=== PATIENT | female | born 1950 | race Two or more races ===

== ENCOUNTER 2024-07-14 23:17 | Emergency (ER) | payer MEDICARE, MEDICAID, SELFPAY ==
[2024-07-14 23:21] VITALS: BMI 31.3
[2024-07-14 23:34] VITALS: BP 154/69; PULSE 67; RESP 18; TEMP 36.3; O2SAT 98
--- NOTE | 2024-07-14 23:35 | XR_ITS ---
Examination: Knee, right , 3 views Technique: Knee AP, lateral, oblique 3 views Date and time of exam: July 15, 2024 0001 hours INDICATION: Patient fell today with injury to the knee, knee pain. FINDINGS: No fracture or dislocation Moderate knee effusion Moderate osteoarthritis medial joint space IMPRESSION: No acute fracture
--- NOTE | 2024-07-14 23:35 | XR_ITS ---
Examination: Right elbow 2 views TECHNIQUE: AP lateral right elbow 2 views Date and time: July 14, 2024 1152 hours INDICATIONS: Patient fell today with injury to elbow, elbow pain FINDINGS: No fracture or dislocation IMPRESSION: No fracture
--- NOTE | 2024-07-15 03:29 | PD.EDLOWEX ---
Lower Extremity Injury RME/HPI General Chief Complaint: Fall Stated Complaint: fall Time Seen by Provider: 07/14/24 23:34 Source: patient and family Arrival date/time: 07/14/24 23:17 This is a case of 74-year-old female who came in in the emergency room with her sister stated that the patient tripped and fell and landed on the right side patient is currently complaining of the right elbow and right knee pain with some abrasion patient is not taking any blood thinner patient denies any head neck chest or abdominal injury no loss of consciousness Limitations: no limitations and language barrier Related Data Home Medications ?Medication ?Instructions ?Recorded ?Confirmed loratadine 10 mg tablet (Claritin) 10 mg PO QDAY #0 tabs 08/15/13 10/06/17 albuterol sulfate 90 mcg/actuation 2 puff inhalation Q4H PRN 10/06/17 06/02/23 aerosol inhaler (Ventolin HFA) Shortness Of Breath Or Wheezing amlodipine 10 mg tablet 10 mg PO QDAY 10/06/17 06/02/23 atorvastatin 20 mg tablet 20 mg PO QDAY 10/06/17 10/06/17 famotidine 20 mg tablet 20 mg PO QDAY 10/06/17 10/06/17 glipizide 5 mg-metformin 500 mg 1 tab PO BID 10/06/17 10/06/17 tablet hydrochlorothiazide 25 mg tablet 25 mg PO QDAY 10/06/17 06/02/23 naproxen 500 mg tablet 500 mg PO BID PRN Pain 10/06/17 10/06/17 valsartan 320 mg tablet 320 mg PO QDAY 10/06/17 10/06/17 diclofenac sodium 1 % topical gel 1 g topical BID 06/02/23 06/02/23 empagliflozin 25 mg tablet 25 mg PO QDAY 06/02/23 06/02/23 (Jardiance) gabapentin 300 mg capsule 300 mg PO TID 06/02/23 06/02/23 galcanezumab-gnlm 120 mg/mL 120 mg subcut QMONTH 06/02/23 06/02/23 subcutaneous pen injector (Emgality Pen) insulin degludec 200 unit/mL (3 30 unit subcut HS 06/02/23 06/02/23 mL) subcutaneous pen (Tresiba FlexTouch U-200 insulin) montelukast 10 mg tablet 10 mg PO QDAY 06/02/23 06/02/23 rosuvastatin 20 mg tablet 20 mg PO QDAY 06/02/23 06/02/23 tizanidine 2 mg tablet 2 mg PO BID 06/02/23 06/02/23 Previous Rx's ?Medication ?Instructions ?Recorded sitagliptin phos 100 mg-metformin 1 tab PO QPM #0 tabs 10/09/17 ER 1,000 mg tablet,extend rel 24h mp (Janumet XR) acetaminophen 500 mg capsule 500 mg PO Q6H PRN fever #30 caps 07/15/24 mupirocin 2 % topical ointment 1 applic topical BID #22 grams 07/15/24 Allergies Allergy/AdvReac Type Severity Reaction Status Date / Time aspirin Allergy Unknown Gastrointestinal Verified 07/14/24 23:27 Upset Penicillins Allergy Unknown Hives Verified 07/14/24 23:27 Review of Systems Review of Systems Systems Reviewed: All systems reviewed, normal except as documented Constitutional Constitutional: Reports system reviewed and no additional complaints, except as documented ENT Ears, Nose, Mouth, and Throat: Denies neck pain Cardiovascular Cardiovascular: Reports system reviewed and no additional complaints, except as documented and Reports as per HPI Respiratory Respiratory: Reports system reviewed and no additional complaints, except as documented and Reports as per HPI Gastrointestinal Gastrointestinal: Reports system reviewed and no additional complaints, except as documented and Reports as per HPI Musculoskeletal Musculoskeletal: Reports system reviewed and no additional complaints, except as documented, Reports as per HPI, Denies abnormal gait, Reports arthralgias, Denies atrophy, Denies back pain, Denies deformity, Denies joint swelling, Denies limited range of motion, Denies loss of height, Denies muscle cramps, Denies muscle weakness, Denies myalgias, Denies neck pain, Denies numbness, Denies radiating pain into limb, Denies stiffness and Denies tingling Neurologic Neurologic: Reports system reviewed and no additional complaints, except as documented, Reports as per HPI, Denies abnormal gait, Denies numbness and Denies tingling Past Medical History Past Medical History NEUROLOGIC: Positive Neurological Disorders, Migraine and Head Trauma (2017); Negative Seizures CARDIAC: Positive Cardiac Disorders, Angina, Hypercholesterolemia, Congestive Heart Failure, Edema, Deep Vein Thrombosis and Hypertension RESPIRATORY: Positive Asthma; Negative Chronic Obstructive Pulmonary Disease (COPD) GASTROINTESTINAL: Positive Gastrointestinal Disorders, Gall Bladder Disease (HAD SURGERY) and Gastroesophageal Reflux Disease (INDIGESTION) GENITOURINARY: Positive Genitourinary Disorders (2-3 UTI A YEAR), Renal Disease and Inguinal Hernia (right groin 2014) REPRODUCTIVE: Positive Previous Pregnancies () MUSCULOSKELETAL: Positive Musculoskeletal Disorders and Arthritis ENT: Positive Cataracts (BILATERAL) and Head Trauma (2017) ENDOCRINE: Positive Endocrine Disorders and Diabetes Mellitus Type 2; Negative Diabetes Mellitus Type 1 HEMATOLOGIC: Negative Blood Disorders PSYCHO/SOCIAL: Positive Anxiety OTHER HISTORY: Positive Blood Transfusions, Chicken Pox, Measles and Mumps; Negative Autoimmune Disease, Falls, Blood Transfusion Reaction, Anesthesia Reactions or Cancer Family History FAMILY HISTORY: Positive Family Cardiac Disorders (parents both MA), Family Gastrointestinal Problems and Family Cancer (mom colon ca); Negative Family Psychiatric Problems, Family Respiratory Disorders, Family Surgery or Family Anesthesia Reaction Surgical History SURGICAL: Positive Hysterectomy and Tubal Ligation Social History SMOKING STATUS: Never smoker ED Exam General Limitations: Present no limitations and language barrier General appearance: Present alert and in no apparent distress Head Head exam: Present atraumatic, normocephalic and normal inspection Eye Eye exam: Present normal appearance, PERRL and EOMI ENT ENT exam: Present normal exam, normal oropharynx and mucous membranes moist Neck Neck exam: Present normal inspection, full ROM and trachea midline; Absent tenderness, meningismus, lymphadenopathy or thyromegaly Chest Chest inspection: Present normal inspection and symmetric chest wall rise; Absent tenderness Respiratory Respiratory exam: Present normal lung sounds bilaterally; Absent respiratory distress, wheezes, stridor, accessory muscle use or prolonged expiratory phase Cardiovascular Cardiovascular exam: Present regular rate, normal rhythm and normal heart sounds; Absent bradycardia, tachycardia, systolic murmur or diastolic murmur Abdominal Exam Abdominal exam: Present soft and normal bowel sounds; Absent tenderness or guarding Extremities Exam Extremities exam: Present normal inspection and full ROM Expanded Upper Extremity Exam Elbow exam: Present tenderness (Mild tenderness on the right elbow with abrasion and mild swelling no crepitation no deformity no redness no dislocation ROM intact neurovascular intact) Expanded Lower Extremity Exam Knee exam: Present tenderness (Mild tenderness on the right anterior knee no crepitation no deformity no redness mild swelling mild tenderness on patella ROM limited due to pain sensory reflexes were normal capillary refill less than 2-second negative calf tenderness negative Huynh sign) Back Exam Back exam: Present normal inspection and full ROM Neurological Exam Neurological exam: Present alert, oriented X3, CN II-XII intact and other (Patient uses cane for ambulation motor sensory reflex were all normal) Psychiatric Psychiatric exam: Present normal affect and normal mood Skin Skin exam: Present warm, dry, intact and normal color Course Quality Measures none Orders Category Date Time Status Apply knee immobilizer NOW Care 07/15/24 02:57 Active sling [Splint / Immobilizer] STAT Care 07/15/24 02:57 Active XR elbow RT 2V Stat Exams 07/14/24 23:35 Taken XR knee RT 3V Stat Exams 07/14/24 23:35 Taken Vital Signs Vital signs: Vital Signs Temperature 97.4 F 07/14/24 23:34 Pulse Rate 67 07/14/24 23:34 Respiratory Rate 18 07/14/24 23:34 Blood Pressure 154/69 H 07/14/24 23:34 Pulse Oximetry (%) 98 07/14/24 23:34 Oxygen Delivery Method Room Air 07/14/24 23:34 Oxygen saturation is 98% in room air Extremity Injury, Lower MDM Narrative MDM Narrative:: This is a case of 74-year-old female who came in in the emergency room with her sister stated that the patient tripped and fell and landed on the right side patient is currently complaining of the right elbow and right knee pain with some abrasion patient is not taking any blood thinner patient denies any head neck chest or abdominal injury no loss of consciousness physical examination patient is awake alert not in distress nontoxic looking noted mild to moderate tenderness on the right elbow and right knee with abrasion mild swelling no crepitation no deformity no redness nose mild swelling patient have a mild to moderate tenderness on patellar area negative Huynh signs no calf tenderness patient noted to have ROM intact on the right elbow while on the right knee limited due to pain x-ray showed no fracture on the right elbow no dislocation I suspect an avulsion fracture on the patella on the right knee knee immobilizer was applied to the right knee and sling on the right elbow patient tolerated well neurovascular intact I discussed with the sister the treatment plan they need to see an orthopedic surgeon for further evaluation and treatment of the avulsion fraction of the right patella for any worsening symptoms or any emergent concern they will return in the emergency room immediately or call 911 patient was discharged with Mobic as needed for pain and mupirocin for abrasion patient denies any head neck chest nor abdominal injury thus I did not order any CT scan also the patient is not taking any blood thinner Patient was discharged with comfortable condition walking with stable gait. Patient verbalized no further complains explained diagnosis and answered patient question. Patient is comfortable with the proposed management plan including the need to follow up with his/her primary care physician and any specialist if applicable Discussed patient for any urgent condition or worsening sx, He/She needed to go to emergency room immediately or call 911. Patient acknowledge the responsibility to follow up as instructed and to monitor her/his symptoms. For any persistence of the symptoms for more than 3-5 days return precaution advised. Discussed the result of the test and was given printed discharge instruction Patient data External records reviewed:: [facility] previous records Clinical information provided by:: patient and family Social determinants that could affect healthcare access:: none Patient has the following chronic illnesses:: None How is presenting disease/condition affected by chronic disease/condition?: no chronic disease Evaluation data The following diagnostics were reviewed and interpreted by me:: radiology exam(s) Lab and/or radiology exams considered but not ordered:: Reviewed Interpretation Summary: As stated Medications / Prescriptions Medications or Prescriptions considered but not ordered:: Given Medication administrations:: Given Consultations Consultation(s) initiated? (list below): No Diagnosis Most likely diagnosis given after review of the tests above:: Patellar fracture elbows Admission Indicated Admission indicated?: not indicated Explain why admission is indicated or not indicated:: Not indicated Admission Request Was there a request for admission?: No Admission Attestation Admission request attestation: Not indicated Disposition Plan Disposition Plan: Discharge Discharge Attestation Discharge Attestation: The patient and all family members were given an opportunity to ask questions and understood the discharge instructions. Discharge instructions specifically effects, indications for sooner follow up or return to the emergency department, and the expected course of current diagnosis. Patient condition: Stable Discharge Plan Plan Patient Disposition: HOME (Self Care) Prescriptions/Referrals Prescriptions/Med Rec: New acetaminophen 500 mg capsule 500 mg PO Q6H PRN (Reason: fever) Qty: 30 0RF mupirocin 2 % ointment 1 applic topical BID Qty: 22 0RF No Action loratadine [Claritin] 10 MG tablet 10 mg PO QDAY Qty: 0 atorvastatin 20 mg Tablet 20 mg PO QDAY famotidine 20 mg Tablet 20 mg PO QDAY amlodipine 10 mg Tablet 10 mg PO QDAY valsartan 320 mg Tablet 320 mg PO QDAY hydrochlorothiazide 25 mg Tablet 25 mg PO QDAY albuterol sulfate [Ventolin HFA] 90 mcg/actuation Hfa Aerosol Inhaler 2 puff Inhalation Q4H PRN (Reason: Shortness Of Breath Or Wheezing) naproxen 500 mg Tablet 500 mg PO BID PRN (Reason: Pain) glipizide-metformin 5-500 mg Tablet 1 tab PO BID sitagliptin phos-metformin [Janumet XR] 100-1,000 mg Tablet, Er Multiphase 24 Hr 1 tab PO QPM Qty: 0 0RF Rx Instructions: Hold until Monday10/11/17 tizanidine 2 mg tablet 2 mg PO BID Patient Comments: TAKE 1 TO 2 TABS ORALLY 2 TIMES A DAY NEEDED 30 DAYS gabapentin 300 mg capsule 300 mg PO TID Patient Comments: ALEX CISNEROS C PSULA PEÑA VECES AL D A FOR 30 DAYS montelukast 10 mg tablet 10 mg PO QDAY Patient Comments: ALEX CISNEROS TABLETA TODOS LOS D FOR 90 DAYS rosuvastatin 20 mg tablet 20 mg PO QDAY Patient Comments: ALEX CISNEROS TABLETA TODOS LOS D diclofenac sodium 1 % gel 1 g TOPICAL BID Patient Comments: APPLY 1 GRAMS TO THE AFFECTED AREA(S) BY TOPICAL ROUTE 2 TIMES PER DAY insulin degludec [Tresiba FlexTouch U-200] 200 unit/mL (3 mL) insulin pen 30 unit SUBCUT HS Patient Comments: INJECT 30 UNITS POR V A SUBCUT JOSUE AL ACOSTARSE Jardiance 25 mg tablet 25 mg PO QDAY Patient Comments: TAKE 1 TABLET BY MOUTH EVERY DAY FOR 90 DAYS Emgality Pen 120 mg/mL pen injector 120 mg SUBCUT QMONTH Patient Comments: INJECT 120 MG BY SUBCUTANEOUS ROUTE ONCE A MONTH IN THE ABDOMEN, THIGH, OUTER UPPER ARM, OR BUTTOCKS Referrals: orthopoe [Other] - In 1 week Leonor Goldsmith PA-C [Primary Care Provider] - In 1 week Tucker Lee MD [Physician] - In 1 week (For further evaluation and treatment of the avulsion fracture of the patella) Problem List Clinical Impression: Fall, Fracture, patella, Elbow sprain, Abrasion Patient/Caregiver Discharge Instructions Education Materials: Fall Prevention Assessing Risk, ED Sprain, Elbow, ED Patella Fracture Additional Instructions: Follow-up with your primary care physician in 2 days for reevaluation and to be referred to orthopedic surgeon for further evaluation and treatment of avulsion fracture of the patella right knee keep the knee immobilizer and sling at all times elevate to decrease swelling ice pack every 2 hours for 20 minutes for 24 hours then alternate with warm compress for any recurrence worsening symptoms or any emergent concern return to the emergency room immediately or call [phone] keep the abrasion clean and dry Print Language: Mongolian Stand Alone Forms: [employer] Award Info., Patient Portal Info Letter PA/COCOA ROASTER Supervising Physician PA/COCOA ROASTER Supervising Physician: dr saha
== END 2024-07-15 04:56 | disposition home or self-care (01) ==
PROVIDERS: Emergency Provider Emergency Medicine; PCP Physician Assistant Medical
DX: S82.001A Unspecified fracture of right patella, initial encounter for closed fracture (principal); S53.401A Unspecified sprain of right elbow, initial encounter; W01.0XXA Fall on same level from slipping, tripping and stumbling without subsequent striking against object, initial encounter
CPT/HCPCS: 73070; 73562; 99283; A4565

== ENCOUNTER 2024-07-19 13:23 | Outpatient (AMB) | payer MEDICARE, MEDICAID, SELFPAY ==
--- NOTE | 2024-07-19 13:32 | ORTHONT_ITS ---
Vital signs 07/19/24 13:33 Height 1.42 m Height Method Stated Weight 70.307 kg Weight Measurement Method Standing Scale BMI 34.7 BP 149/73 H Blood Pressure Source Automatic Cuff Blood Pressure Location Left Upper Arm Position Sitting Respiration 18 Pulse 75 Pulse Source Monitor Temp 97.4 F Temp Source Temporal Artery Scan Pulse Oximetry (%) 95 Oxygen Delivery Method Room Air Med/Allergies Allergies & Medications Allergies aspirin Allergy (Unknown, Verified 07/19/24 13:33) Gastrointestinal Upset Penicillins Allergy (Unknown, Verified 07/19/24 13:33) Hives Medication Reconciliation atorvastatin 20 mg tablet 20 mg PO QDAY 10/06/17 [History Confirmed 07/19/24] glipizide 5 mg-metformin 500 mg tablet 1 tab PO BID 10/06/17 [History Confirmed 07/19/24] hydrochlorothiazide 25 mg tablet 25 mg PO QDAY 10/06/17 [History Confirmed 07/19/24] naproxen 500 mg tablet 500 mg PO BID PRN Pain 10/06/17 [History Confirmed 07/19/24] diclofenac sodium 1 % topical gel 1 g topical BID 06/02/23 [History Confirmed 07/19/24] empagliflozin 25 mg tablet (Jardiance) 25 mg PO QDAY 06/02/23 [History Confirmed 07/19/24] gabapentin 300 mg capsule 300 mg PO TID 06/02/23 [History Confirmed 07/19/24] acetaminophen 500 mg capsule 500 mg PO Q6H PRN fever #30 caps 07/15/24 [Rx Confirmed 07/19/24] mupirocin 2 % topical ointment 1 applic topical BID #22 grams 07/15/24 [Rx Confirmed 07/19/24] Assessment and Plan Advanced Care Planning Discussion Advance care planning discussed with:: patient and child Office Procedures GNS Level of Care Nursing/Assessment Patient Status: Established Patient Nursing Assessment/Reassesment: Medication Reconciliation, Update PMH in EMR and Vital Signs Coordination of Care: Complex Care and Chronic Disease 1-5, Education Complex Pt/Fam, Consent,records obtained, informed consent, 1 Ins Authorization, Lab and Imaging orders, Results/Orders obtained and Staff clarify orders Established Patient Charge Established Patient Point Assignment: 125 Established Patient Point Charge: EP Level 4 (120-155) MA Intake Visit Data Collection New Patient or Established: Established Patient (seen at [facility] within 3 years) Reason for Visit:: RIGHT PATELLA FRACTURE Seen by Clinical Staff ONLY (RN/MA): No Surgical Instrument Maker Required: No PCP or OBGYN visit in last 3 months: Yes Hx Now: No Do You Feel Safe at Home: Yes Authorities Contacted: N/A Questionairres Past Medical History Past Medical History Have you ever been diagnosed with any of the following: Neurological Problems Seizures: No Migraine: Yes Head Trauma: Yes (2017) Cardiology Problems Angina: Yes Hypercholesterolemia: Yes Congestive Heart Failure: Yes Edema: Yes Deep Vein Thrombosis: Yes Hypertension: Yes Respiratory Problems Chronic Obstructive Pulmonary Disease (COPD): No Asthma: Yes Smoking: No Smoking Exposure: No Stomache/Intestinal Problems Gall Bladder Disease: Yes (HAD SURGERY) Gastroesophageal Reflux Disease: Yes (INDIGESTION) Genital/Urinary Problems Renal Disease: Yes Inguinal Hernia: Yes (right groin 2014) Reproductive Problems Previous Pregnancies: Yes () Musculoskeletal Problems Arthritis: Yes Head,Eye,Nose,Throat Problems Cataracts: Yes (BILATERAL) Endocrine Problems Diabetes Mellitus Type 1: No Diabetes Mellitus Type 2: Yes Psychologic Problems Anxiety: Yes Other Problems Falls: No Blood Transfusions: Yes Blood Transfusion Reaction: No Anesthesia Reactions: No Chicken Pox: Yes Measles: Yes Mumps: Yes Cancer: No Surgical History Hysterectomy: Yes Subjective Visit Visit for: new patient and other (specify) (PATELLA FRACTURE) Immunization / Flu Flu Vaccine in the Last 12 Months: Yes Flu Vaccine Exclusion Criteria: Already Received Pain Pain level (0-10): 7 Pain duration: ALL DAY Pain location: inside (medial) and anterior Pain quality: dull and aching Pain timing: night, increases with activity and stairs Associated signs & symptoms: none Ambulatory data Ambulatory device: other (specify) (WHEEL CHAIR) Treatments Improvement with previous injections: No Improvement with PT: No Improvement with NSAIDS: no Review of Systems Review of Systems: All systems negative unless otherwise noted in HPI.
[2024-07-19 13:33] VITALS: BP 149/73; PULSE 75; RESP 18; TEMP 36.3; O2SAT 95; BMI 34.7
--- NOTE | 2024-07-19 13:51 | XR_ITS ---
Examination: Right ankle 2 views Technique one AP lateral right ankle 2 views Date and time: July 19, 2024 1359 hours INDICATIONS: Patient fell 2 days ago with injury, ankle pain. FINDINGS: Moderate osteopenia. No acute fracture. Moderate plantar posterior bony calcaneal spurs IMPRESSION: No ankle fracture or dislocation
== END 2024-07-19 13:42 | disposition home or self-care (01) ==
LOC: HODSRG 13:23
PROVIDERS: PCP Physician Assistant Medical; Referring Provider Physician Assistant Medical; Supervising Provider Orthopaedic Surgery Adult Reconstructive Orthopaedic Surgery; Visit Provider Orthopaedic Surgery Adult Reconstructive Orthopaedic Surgery
DX: S82.001A Unspecified fracture of right patella, initial encounter for closed fracture (principal); X58.XXXA Exposure to other specified factors, initial encounter; I11.0 Hypertensive heart disease with heart failure; I50.9 Heart failure, unspecified; E78.00 Pure hypercholesterolemia, unspecified; E11.9 Type 2 diabetes mellitus without complications
CPT/HCPCS: 73600; 99214; G0463

== ENCOUNTER 2024-08-08 10:02 | Outpatient (AMB) | payer MEDICARE, MEDICAID, SELFPAY ==
[2024-08-08 10:30] VITALS: BP 157/76; PULSE 66; RESP 18; TEMP 36.3; O2SAT 97; BMI 33.3
--- NOTE | 2024-08-08 10:30 | PD.ORTHCLVIS ---
Vital signs 08/08/24 10:30 Height 1.42 m Height Method Stated Weight 67.16 kg Weight Measurement Method Standing Scale BMI 33.3 BP 157/76 H Blood Pressure Source Automatic Cuff Blood Pressure Location Right Upper Arm Position Sitting Respiration 18 Pulse 66 Pulse Source Monitor Temp 97.3 F Temp Source Temporal Artery Scan Pulse Oximetry (%) 97 Oxygen Delivery Method Room Air Med/Allergies Allergies & Medications Allergies aspirin Allergy (Unknown, Verified 08/08/24 10:36) Gastrointestinal Upset Penicillins Allergy (Unknown, Verified 08/08/24 10:36) Hives Medication Reconciliation atorvastatin 20 mg tablet 20 mg PO QDAY 10/06/17 [History Confirmed 08/08/24] glipizide 5 mg-metformin 500 mg tablet 1 tab PO BID 10/06/17 [History Confirmed 08/08/24] hydrochlorothiazide 25 mg tablet 25 mg PO QDAY 10/06/17 [History Confirmed 08/08/24] naproxen 500 mg tablet 500 mg PO BID PRN Pain 10/06/17 [History Confirmed 08/08/24] diclofenac sodium 1 % topical gel 1 g topical BID 06/02/23 [History Confirmed 08/08/24] empagliflozin 25 mg tablet (Jardiance) 25 mg PO QDAY 06/02/23 [History Confirmed 08/08/24] gabapentin 300 mg capsule 300 mg PO TID 06/02/23 [History Confirmed 08/08/24] acetaminophen 500 mg capsule 500 mg PO Q6H PRN fever #30 caps 07/15/24 [Rx Confirmed 08/08/24] mupirocin 2 % topical ointment 1 applic topical BID #22 grams 07/15/24 [Rx Confirmed 08/08/24] Exam Exam Patient is in no acute distress and is cooperative with the examination today. Breathing is nonlabored. Patient has a normal mood and affect. The patient has a gait that is nonantalgic Bilateral extremities were evaluated and demonstrates sensation intact to light touch. Palpable pedal pulses are present. No significant edema is present. Bilateral hips were examined. The patient has no pain with log roll of the hips. Internal rotation to 30 degrees and external rotation to 30 degrees is painless. Negative FADIR. Left knee was examined today. The left knee is in reasonable alignment. Range of motion from 0-120 degrees. Knee is stable to varus and valgus as well as AP translation with <5mm. Patient has a negative McMurrays. There is no pain with patellofemoral compression and no crepitus noted. The knee is nontender to palpation. The right knee was also examined. The right knee is in neutral alignment. Range of motion from 0-120 degrees. Knee is stable to varus and valgus as well as AP translation with <5mm. Patient has a negative McMurrays. There is no pain with patellofemoral compression and no crepitus noted. The knee is nontender to palpation diffusely. X-rays demonstrate no fracture.I do not see any acute pathology Assessment and Plan Problem List (1) Pain in right knee: Status: Acute Plan: Patient is a 74-year-old female with a ground-level fall and supposedly a right patella fracture. The patella is intact on x-ray. She has no pain there at all. Her Straight leg raise is intact and she has an intact extensor mechanism. We will continue to see her but we will start with therapy. I do not see a patella fracture. Her ankle x-rays also look good and demonstrate no fracture. Will give her a cane today. She is walking very well Advanced Care Planning Discussion Advance care planning discussed with:: patient and child Office Procedures GNS Level of Care Nursing/Assessment Patient Status: Established Patient Nursing Assessment/Reassesment: Medication Reconciliation, Update PMH in EMR and Vital Signs Coordination of Care: Complex Care and Chronic Disease 1-5, Education Complex Pt/Fam, Consent,records obtained, informed consent, Results/Orders obtained and Staff clarify orders Special Needs: Language special needs Established Patient Charge Established Patient Point Assignment: 95 Established Patient Point Charge: EP Level 3 (80-115) MA Intake Visit Data Collection New Patient or Established: Established Patient (seen at [facility] within 3 years) Reason for Visit:: F/U ON XRAYS Seen by Clinical Staff ONLY (RN/MA): No Verbal consent obtained for Telemed visit?: No Digital Marketing Apprentice Required: Yes PCP or OBGYN visit in last 3 months: Yes Hx Now: No Do You Feel Safe at Home: Yes Authorities Contacted: N/A Questionairres Past Medical History Past Medical History Have you ever been diagnosed with any of the following: Neurological Problems Seizures: No Migraine: Yes Head Trauma: Yes (2016) Cardiology Problems Angina: Yes Hypercholesterolemia: Yes Congestive Heart Failure: Yes Edema: Yes Deep Vein Thrombosis: Yes Hypertension: Yes Respiratory Problems Chronic Obstructive Pulmonary Disease (COPD): No Asthma: Yes Smoking: No Smoking Exposure: No Stomache/Intestinal Problems Gall Bladder Disease: Yes (HAD SURGERY) Gastroesophageal Reflux Disease: Yes (INDIGESTION) Genital/Urinary Problems Renal Disease: Yes Inguinal Hernia: Yes (right groin 2015) Reproductive Problems Previous Pregnancies: Yes () Musculoskeletal Problems Arthritis: Yes Head,Eye,Nose,Throat Problems Cataracts: Yes (BILATERAL) Endocrine Problems Diabetes Mellitus Type 1: No Diabetes Mellitus Type 2: Yes Psychologic Problems Anxiety: Yes Other Problems Falls: No Blood Transfusions: Yes Blood Transfusion Reaction: No Anesthesia Reactions: No Chicken Pox: Yes Measles: Yes Mumps: Yes Cancer: No Surgical History Hysterectomy: Yes Subjective Visit Visit for: new patient and other (specify) (PATELLA FRACTURE) Immunization / Flu Flu Vaccine in the Last 12 Months: Yes Flu Vaccine Exclusion Criteria: Already Received History of Present Illness Chief complaint: Right knee pain Patient is a 74-year-old female with a ground-level fall. She was told she has a fracture of her patella. She reports the pain Has improved significantly and she is in physical therapy. She is happy with how she is doing. She is walking with no assistive device Pain Pain level (0-10): 7 Pain duration: ALL DAY Pain location: inside (medial) and anterior Pain quality: dull and aching Pain timing: night, increases with activity and stairs Associated signs & symptoms: none Ambulatory data Ambulatory device: other (specify) (WHEEL CHAIR) Treatments Improvement with previous injections: No Improvement with PT: No Improvement with NSAIDS: no Review of Systems Review of Systems: All systems negative unless otherwise noted in HPI.
== END 2024-08-08 10:47 | disposition home or self-care (01) ==
LOC: HODSRG 10:02
PROVIDERS: PCP Physician Assistant Medical; Referring Provider Physician Assistant Medical; Supervising Provider Orthopaedic Surgery Adult Reconstructive Orthopaedic Surgery; Visit Provider Orthopaedic Surgery Adult Reconstructive Orthopaedic Surgery
DX: M25.561 Pain in right knee (principal); S89.91XD Unspecified injury of right lower leg, subsequent encounter; W19.XXXD Unspecified fall, subsequent encounter; I10 Essential (primary) hypertension; I11.0 Hypertensive heart disease with heart failure; I50.9 Heart failure, unspecified; E78.00 Pure hypercholesterolemia, unspecified; K21.9 Gastro-esophageal reflux disease without esophagitis; E11.9 Type 2 diabetes mellitus without complications
CPT/HCPCS: 99213; G0463